=== PATIENT | female | born 1990 | race Native Hawaiian/Other Pacific Islander ===

== ENCOUNTER 2016-06-17 23:46 | Emergency (ER) | payer MEDICAID, OTHER ==
[~2016-06-17] VITALS: Ht 170.2 cm; Wt 75.0 kg
[~2016-06-17 23:46] MED LIST: PREN-64 PO
[2016-06-18 01:41] VITALS: BP 121/71
== END 2016-06-18 02:50 | disposition left against medical advice (07) ==
LOC: EMS 23:49
DX: M54.2 Cervicalgia (principal); F12.90 Cannabis use, unspecified, uncomplicated; Z53.21 Procedure and treatment not carried out due to patient leaving prior to being seen by health care provider